=== PATIENT | female | born 1975 | race Caucasian/White ===

== ENCOUNTER 2019-11-27 06:33 | Inpatient (IN) ==
[2019-11-27] MEDS ORDERED: Ketorolac 30 MG/ML VIAL IVP ONE (07:14)
[2019-11-27] MEDS ORDERED: Ondansetron 4 MG/2 ML VIAL IVP ONE (07:14)
[2019-11-27] MEDS ORDERED: *HR* OxyCODONE Immed Rel 5 MG TABLET PO PRN (07:14)
[2019-11-27] MEDS ORDERED: Ringers Solution, Lactated 1,000 ML IVC SCH ×2 (07:15→12:45)
[2019-11-27] MEDS ORDERED: Clindamycin 900 MG/50 ML 900 MG/50 ML IV.SOLN IVPB ONE (07:25)
[2019-11-27] MEDS ORDERED: Ketorolac 15 MG/ML VIAL IVP ONE (07:25)
[2019-11-27] MEDS ORDERED: Dexamethasone 4 MG/ML VIAL ONE ×2 (07:52→08:52)
[2019-11-27] MEDS ORDERED: Lidocaine -MPF 2% 2 ML VIAL ONE (07:52)
[2019-11-27] MEDS ORDERED: Ondansetron 4 MG/2 ML VIAL ONE (07:52)
[2019-11-27] MEDS ORDERED: *HR* Midazolam HCl 2 MG/2 ML VIAL ONE (07:52)
[2019-11-27] MEDS ORDERED: *HR* Rocuronium Bromide 50 MG/5 ML VIAL ONE (07:52)
[2019-11-27] MEDS ORDERED: *HR* FentaNYL (PF) 100 MCG/2 ML VIAL ONE ×3 (07:52→10:51)
[2019-11-27] MEDS ORDERED: *HR* Succinylcholine 200 MG/10 ML VIAL IVP ONE (07:52)
[2019-11-27] MEDS ORDERED: *HR* Propofol 200 MG/20 ML VIAL IVP ONE ×2 (07:53→11:34)
[2019-11-27] MEDS ORDERED: Lidocaine HCL 4 ML Topical Solution (Laryng-O-Jet Kit Sterile Pak) TP ONE (07:53)
[2019-11-27] MEDS ORDERED: Ketorolac 30 MG/ML VIAL ONE (07:55)
[2019-11-27] MEDS ORDERED: Lidocaine/EPI 1:100k 1% 20 ML VIAL ONE (08:22)
[2019-11-27] MEDS ORDERED: Acetaminophen IV 1,000 MG/100 ML INFUS..BTL ONE (11:19)
[2019-11-27] MEDS ORDERED: *HR* HYDROMORPHONE 2 MG/ML VIAL ONE (11:34)
[2019-11-27] MEDS ORDERED: Ondansetron 4 MG/2 ML VIAL IVP PRN ×2 (12:45→21:41)
[2019-11-27] MEDS ORDERED: Naloxone 0.4 MG/ML INJ IVP PRN (12:45)
[2019-11-27] MEDS ORDERED: Sennosides 8.6 MG TABLET PO PRN (12:45)
[2019-11-27] MEDS: *HR* OxyCODONE/APAP 5/325 TABLET PO PRN ×2 (14:49→19:50)
[2019-11-27] MEDS: Clindamycin 900 MG/50 ML 900 MG/50 ML IV.SOLN IVPB SCH (14:51)
[2019-11-27] MEDS: Simethicone 80 MG TAB.CHEW PO PRN (18:40)
[2019-11-27] MEDS ORDERED: Loratadine 10 MG TABLET PO SCH (21:00)
[2019-11-28] MEDS: Clindamycin 900 MG/50 ML 900 MG/50 ML IV.SOLN IVPB SCH (00:22)
[2019-11-28 07:49] VITALS: BP 118/73
[2019-11-28] MEDS: Simethicone 80 MG TAB.CHEW PO PRN (08:11)
[2019-11-28] MEDS: *HR* OxyCODONE/APAP 5/325 TABLET PO PRN (08:11)
[2019-11-28] MEDS ORDERED: Sulfamethoxazole/Trimeth DS 1 EACH TABLET PO SCH (09:00)
== END 2019-11-28 10:45 | disposition home or self-care (01) | DRG 742 ==
LOC: SAMDAY 06:33 → 1NENUOBS 12:44
PROVIDERS: ADMIT Obstetrics & Gynecology; ATTEND Obstetrics & Gynecology